=== PATIENT | female | born 1965 | race Caucasian/White ===

== ENCOUNTER 2016-10-20 15:07 | Emergency (ER) | payer OTHER ==
[~2016-10-20] VITALS: Ht 170.2 cm; Wt 70.3 kg
[~2016-10-20 15:07] MED LIST: ASPI325T45 PO; FLUT0.0529 NAE; FOLI1TAB7 PO; GUAI1TAB55 PO; LORA-741 PO; METO25TA56 PO; OXYB5TAB74 PO; PRT/20 PO; SERT100T PO; THIA100T11 PO
[2016-10-20 15:14] VITALS: TEMP 36.8; Ht 170.2 cm; Wt 70.3 kg
[2016-10-20] MEDS ORDERED: OPTIRAY 320 IV PRN (15:45)
[2016-10-20 15:46] VITALS: O2SAT 97
[2016-10-20] MEDS ORDERED: ATV5X PO (15:52)
[2016-10-20] MEDS ORDERED: LPR25 PO (15:52)
[2016-10-20] MEDS ORDERED: ZLF/100 PO (15:52)
[2016-10-20] MEDS ORDERED: DTR5 PO (15:52)
[2016-10-20] MEDS ORDERED: FLUT0.15 NAE (15:56)
[2016-10-20 16:09] LABS: BASO % 0.3 %; BASO ABS # 0.01 K/uL (0-0.2); COMPLETE YES; EOS % 2.1 %; HEMATOCRIT 37.2 % (37-47); IG% 0.3 %; LYMPH % 25.7 %; LYMPH ABS # 0.98 K/uL (1.2-3.4); MEAN CELL VOLUME 90.7 fL (80-100); MEAN CORPUSCULAR HEMOGLOBIN 32.2 pg (25-34); MEAN CORPUSCULAR HGB CONC 35.5 g/dl (32-36); MONO % 11.5 %; NEUT % 60.1 %; PLATELET COUNT 169 K/uL (130-400); WHITE BLOOD COUNT 3.82 K/uL (4.8-10.8)
[2016-10-20 16:18] LABS: PARTIAL THROMBOPLASTIN RATIO 1.1; PROTHROMBIN TIME (PATIENT) 11.1 SECONDS (9.0-12.0)
[2016-10-20 16:47] LABS: ALB/GLOB RATIO 1.1 (0.9-2); ALKALINE PHOSPHATASE 46 U/L (45-117); ALT/SGPT 19 U/L (12-78); AST/SGOT 14 U/L (15-37); BLOOD UREA NITROGEN 15 mg/dl (7-18); BUN/CREATININE RATIO 16.5 (10-20); CALCIUM 8.4 mg/dl (8.5-10.1); CARBON DIOXIDE 24 mmol/L (21-32); CHLORIDE 110 mmol/L (98-107); GLUCOSE 93 mg/dl (70-99); POTASSIUM 3.6 mmol/L (3.5-5.1); SODIUM 144 mmol/L (136-145)
--- NOTE | 2016-10-20 17:36 | DIAGNOSTIC IMAGING REPORT ---
CT ANGIOGRAM OF THE CHEST CLINICAL HISTORY: Chest pain and shortness of breath. Suspected pulmonary embolism. COMPARISON STUDY: Conventional radiographic study dated 01/19/2016 TECHNIQUE: Following the IV administration of 87 mL of Optiray-320, CT angiogram of the thorax was performed from the thoracic inlet to the lung bases utilizing the pulmonary embolus protocol. Images are reviewed in the axial, sagittal, and coronal planes. IV contrast was administered without complication. MIP imaging was performed. CT DOSE: 231.63 mGy.cm FINDINGS: No pathologically enlarged axillary mediastinal or hilar lymph nodes were visualized. There was no evidence of thoracic aortic dilatation. There were no pulmonary artery filling defects to indicate acute pulmonary embolism. No pleural effusions are visualized. There was no evidence of focal pulmonary consolidation. There is embolic coils in wire within the lingula. There is a left subclavian implantable pacer/defibrillator present. There is a 2.5 mm perifissural right lower lobe pulmonary nodule as visualized in image #[id number]. IMPRESSION: 1. No CT evidence of acute pulmonary embolism 2. No evidence of focal pulmonary consolidation. Electronically signed by: Justin Blakely M.D. 10/20/2016 5:35 PM Dictated Date/Time: 10/20/2016 5:29 PM
[2016-10-20 17:42] VITALS: PULSE 94; O2SAT 99
[2016-10-20] MEDS ORDERED: AZITHROMYCIN 250 MG TAB PO STA (18:01)
[2016-10-20] MEDS ORDERED: AZIT250T PO (18:04)
[2016-10-20 18:11] VITALS: BP 125/88
[2016-10-20] MEDS ORDERED: RANI150T3 PO (18:12)
[2016-10-20] MEDS ORDERED: CLR10 PO (22:37)
[2016-10-20] MEDS ORDERED: SALI1SPR3 NAE (22:55)
--- NOTE | 2016-10-21 00:46 | EMERGENCY ROOM VISIT NOTE ---
History First contact with patient: 15:19 Chief Complaint: CHEST PAIN Stated Complaint: SOB, BURNING CHEST PAIN, COUGH History of Present Illness The patient is a 51 year old female who presents to the Emergency Room with complaints of left-sided chest pain, shortness of breath and cough. The patient reports that she developed a cold 1.5 to 2 weeks ago. The patient reports that her symptoms have been consistent. 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 She was seen on the floor by Cresencio Potter PA-C who was concerned regarding her shortness of breath. She was then quickly evaluated by Dr. Artur Zelaya, board mixer tender, who suggested that she come to the emergency department for further evaluation. The patient has a significant prior history of cardiac arrest, and has a defibrillator. She also has a history of AVM and cerebral aneurysm that has been coiled and stented. When she had her cardiac arrest, her board mixer tender was not sure if she actually had a pulmonary embolus that prompted the cardiac arrest or AVM. She is currently on aspirin 325 mg daily. The patient reports that she has had chills, but has not checked her temperature. She denies any productive cough. She currently denies any chest pain. Review of Systems HEENT: Denies dizziness, visual problems, hearing loss, tinnitus. Denies difficulty swallowing or oral lesions. PULMONARY: Reports nonproductive cough and shortness of breath. Denies sputum production or hemoptysis. CARDIOVASCULAR: Reports left-sided chest pain, without palpitations, dyspnea on exertion, orthopnea or peripheral edema. GASTROINTESTINAL: Denies diarrhea, constipation, nausea, vomiting, or abdominal pain. GENITOURINARY: Denies dysuria, frequency, urgency or nocturia. NEUROLOGIC: Denies history of epilepsy, CVA, TIA or chronic headaches. MUSCULOSKELETAL: Denies history of joint tenderness/swelling. SKIN: Denies rashes or lesions. PSYCHIATRIC: Denies history of depression or mental illness. ENDOCRINE: Denies history of diabetes or thyroid disorders. 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 Surgical Problems: (1) Brain aneurysm Family History Heart disease Hypertension Social History Smoking Status: Never Smoker Alcohol Use: none Drug Use: none Marital Status: Housing Status: lives with significant other Occupation Status: employed Current/Historical Medications Scheduled Aspirin (Aspirin), 325 MG PO DAILY Azithromycin (Zithromax), 250 MG PO DAILY Folic Acid (Folvite), 1 MG PO DAILY Metoprolol Tartrate (Lopressor), 25 MG PO BID Oxybutynin Chloride (Oxybutynin Chloride), 5 MG PO DAILY Sertraline HCl (Sertraline HCl), 100 MG PO DAILY Thiamine Hcl (Vitamin B-1), 100 MG PO DAILY Scheduled PRN Fluticasone Propionate (Nasal) (Flonase Allergy Relief), 2 SPRAYS FLAQUITO DAILY PRN for Nasal Congestion Guaifenesin Ext Rel (Mucinex Ext Rel), 600-1,200 MG PO Q12 PRN for Cold Symptoms Loratadine (Claritin), 10 MG PO DAILY PRN for Allergy Symptoms Lorazepam (Lorazepam), 0.5 MG PO TID PRN for Anxiety Ranitidine Hcl (Zantac), 150 MG PO BID PRN for Indigestion Saline (Saline Nasal [place]), 2 SPRAYS FLAQUITO UD PRN for Nasal Congestion/Dryness Allergies Coded Allergies: No Known Allergies (Verified , 03/18/15) Physical Exam Vital Signs Date Time Temp Pulse Resp B/P Pulse Ox O2 Delivery O2 Flow Rate FiO2 10/20/16 18:11 125/88 10/20/16 17:42 94 20 99 10/20/16 17:12 106 30 98 10/20/16 16:58 111/74 10/20/16 16:42 96 17 96 10/20/16 16:37 94 22 95 10/20/16 16:28 108/74 10/20/16 16:07 101 20 97 10/20/16 16:06 100 10/20/16 15:58 115/79 10/20/16 15:46 97 Room Air 10/20/16 15:46 110 20 142/85 97 Room Air 10/20/16 15:14 36.8 117 24 131/78 98 Room Air Physical Exam CONSTITUTIONAL: Healthy and well nourished. Alert and oriented X 3 with positive affect. Patient does appear in mild respiratory distress. She is able to speak in complete sentences, but occasionally will stop and take a deep breath. HEENT: Normocephalic, atraumatic. Pupils equal, round and reactive. Ears and nares are clear. OROPHARYNX: No posterior pharyngeal erythema or tonsillar hypertrophy. NECK: Full active range of motion without discomfort. No JVD or carotid bruits. RESPIRATORY: Clear to auscultation bilaterally with no wheezing, crackles, rhonchi or stridor. CARDIOVASCULAR: Tachycardic with no murmurs, rubs or gallops. GASTROINTESTINAL: Bowel sounds present in all quadrants. Soft and nontender to palpation. MUSCULOSKELETAL: Full range of motion of all joints without discomfort. INTEGUMENTARY: No rash or other significant dermatologic conditions noted. HEMATOLOGIC: No ecchymosis or petechiae noted. NEUROLOGIC: No focal neurologic deficits noted. Medical Decision & Procedures ER Provider Diagnostic Interpretation: My interpretation of an ECG shows a sinus tachycardia of [address] elevations, T-wave inversions or other defibrillator activity. CT angiography of the chest was negative for pulmonary embolus or lung consolidations. Radiologist report is as follows: CT ANGIOGRAM OF THE CHEST CLINICAL HISTORY: Chest pain and shortness of breath. Suspected pulmonary embolism. COMPARISON STUDY: Conventional radiographic study dated 01/19/2016 TECHNIQUE: Following the IV administration of 87 mL of Optiray-320, CT angiogram of the thorax was performed from the thoracic inlet to the lung bases utilizing the pulmonary embolus protocol. Images are reviewed in the axial, sagittal, and coronal planes. IV contrast was administered without complication. MIP imaging was performed. CT DOSE: 231.63 mGy.cm FINDINGS: No pathologically enlarged axillary mediastinal or hilar lymph nodes were visualized. There was no evidence of thoracic aortic dilatation. There were no pulmonary artery filling defects to indicate acute pulmonary embolism. No pleural effusions are visualized. There was no evidence of focal pulmonary consolidation. There is embolic coils in wire within the lingula. There is a left subclavian implantable pacer/defibrillator present. There is a 2.5 mm perifissural right lower lobe pulmonary nodule as visualized in image #[id number]. IMPRESSION: 1. No CT evidence of acute pulmonary embolism 2. No evidence of focal pulmonary consolidation. Laboratory Results 10/20/16 15:55 Red Blood Count 4.10, Mean Corpuscular Volume 90.7, Mean Corpuscular Hemoglobin 32.2, Mean Corpuscular Hemoglobin Concent 35.5, Mean Platelet Volume 9.0, Neutrophils (%) (Auto) 60.1, Lymphocytes (%) (Auto) 25.7, Monocytes (%) (Auto) 11.5, Eosinophils (%) (Auto) 2.1, Basophils (%) (Auto) 0.3, Neutrophils # (Auto ) 2.30, Lymphocytes # (Auto) 0.98, Monocytes # (Auto) 0.44, Eosinophils # (Auto ) 0.08, Basophils # (Auto) 0.01 10/20/16 15:55 Test 10/20/16 15:55 10/20/16 16:04 White Blood Count 3.82 K/uL (4.8-10.8) Red Blood Count 4.10 M/uL (4.2-5.4) Hemoglobin 13.2 g/dL (12.0-16.0) Hematocrit 37.2 % (37-47) Mean Corpuscular Volume 90.7 fL (80-100) Mean Corpuscular Hemoglobin 32.2 pg (25-34) Mean Corpuscular Hemoglobin Concent 35.5 g/dl (32-36) Platelet Count 169 K/uL (130-400) Mean Platelet Volume 9.0 fL (7.4-10.4) Neutrophils (%) (Auto) 60.1 % Lymphocytes (%) (Auto) 25.7 % Monocytes (%) (Auto) 11.5 % Eosinophils (%) (Auto) 2.1 % Basophils (%) (Auto) 0.3 % Neutrophils # (Auto) 2.30 K/uL (1.4-6.5) Lymphocytes # (Auto) 0.98 K/uL (1.2-3.4) Monocytes # (Auto) 0.44 K/uL (0.11-0.59) Eosinophils # (Auto) 0.08 K/uL (0-0.5) Basophils # (Auto) 0.01 K/uL (0-0.2) RDW Standard Deviation 41.9 fL (36.4-46.3) RDW Coefficient of Variation 12.7 % (11.5-14.5) Immature Granulocyte % (Auto) 0.3 % Immature Granulocyte # (Auto) 0.01 K/uL (0.00-0.02) Prothrombin Time 11.1 SECONDS (9.0-12.0) Prothromb Time International Ratio 1.0 (0.9-1.1) Activated Partial Thromboplast Time 27.7 SECONDS (21.0-31.0) Partial Thromboplastin Ratio 1.1 Anion Gap 10.0 mmol/L (3-11) Est Creatinine Clear Calc Drug Dose 71.9 ml/min Estimated GFR () 85.8 Estimated GFR (Non- 74.0 BUN/Creatinine Ratio 16.5 (10-20) Calcium Level 8.4 mg/dl (8.5-10.1) Total Bilirubin 1.0 mg/dl (0.2-1) Aspartate Amino Transf (AST/SGOT) 14 U/L (15-37) Alanine Aminotransferase (ALT/SGPT) 19 U/L (12-78) Alkaline Phosphatase 46 U/L (45-117) Total Creatine Kinase 44 U/L (26-192) Creatine Kinase MB < 0.5 ng/ml (0.5-3.6) Creatine Kinase MB Ratio (0-3.0) Total Protein 7.0 gm/dl (6.4-8.2) Albumin 3.7 gm/dl (3.4-5.0) Globulin 3.3 gm/dl (2.5-4.0) Albumin/Globulin Ratio 1.1 (0.9-2) Monoscreen NEG (NEG) Bedside Troponin I 0.000 ng/ml (0-0.045) The above labs were reviewed bedside troponin was normal. CBC, partial renal profile, LFTs, lipase and coagulation studies are normal. [place] screen was also negative. Medications Administered Medications (Trade) Dose Ordered Sig/Jordi Route Start Time Stop Time Status Last Admin Dose Admin Azithromycin (Zithromax Tab) 500 mg NOW STAT PO 10/20/16 18:01 10/20/16 18:02 DC 10/20/16 18:30 500 MG ED Course Patient history and physical exam were performed. Nurse's notes were reviewed. Vital signs were reviewed. The patient is tachycardic. She is normotensive and afebrile. O2 saturation is 98% on room air. The patient does have a noticeable shortness of breath, occasionally stopping with her speech and taking a deep breath. She does not appear acutely ill or toxic. Given her prior history of AVM and questionable preceding pulmonary embolus, I did suggest performing a CT scan of the chest. The patient was in agreement. IV access was established, and labs were drawn. Initial ECG was normal. Labs were also reviewed and were normal, including a bedside troponin. Chest CT angiography was normal. Because the patient has had upper respiratory symptoms for the past few weeks, I do feel that antibiotic treatment is warranted. The patient was provided a prescription for Zithromax. She was encouraged to follow-up closely with her PCP for further management, returning to the emergency department for any progressively worsening symptoms. The patient was happy with plan of care, voice understanding of all discharge instructions, and denied any chest pain or significant shortness of breath at the time of discharge. Medical Decision Patient presents to the emergency department with complaint of shortness of breath. She has had an upper respiratory infection over the past 2 months with cough. She also has a significant history of myocardial infarction with arrest , and defibrillator in place. She also has a prior history of AVM, possibly originating from a pulmonary embolus. Because of the patient's history, I did feel that chest CT angiography was warranted. This was normal, and did not show any evidence for pulmonary emboli or focal lung consolidations. Her ECG and troponin values are normal. I do not suspect acute myocardial infarction. There is no convincing evidence for pericarditis on CT scan. No pneumothorax or pneumonia is noted. Other differentials considered included pleurisy, however the patient does not have any worsening discomfort with deep breathing. I do not suspect abdominal referred pain. Impression Primary Impression: Shortness of breath Additional Impression: Acute bronchitis Departure Information Prescriptions Azithromycin (Zithromax) 250 Mg Tab 250 MG PO DAILY for 9 Days, #9 TAB Prov: Samir Plasencia PA 10/20/16 Referrals Roque Haywood M.D.([facility]) (PCP) Patient Instructions My [facility] Problem Qualifiers Additional Impression: Acute bronchitis Bronchitis organism: unspecified organism Qualified Codes: J20.9 - Acute bronchitis, unspecified
== END 2016-10-20 18:30 | disposition home or self-care (01) ==
LOC: C.EDB 15:09 → C.EDC 18:30
DX: R06.02 Shortness of breath (principal); J20.9 Acute bronchitis, unspecified; I25.2 Old myocardial infarction; Z79.899 Other long term (current) drug therapy; Z79.82 Long term (current) use of aspirin; Z95.810 Presence of automatic (implantable) cardiac defibrillator; Z86.79 Personal history of other diseases of the circulatory system; Z82.49 Family history of ischemic heart disease and other diseases of the circulatory system

== ENCOUNTER → 2017-02-09 | Outpatient (CLI) | payer OTHER ==
[~2017-02-09] MED LIST changes: +ATV5X PO; +CHOL2000 PO; +CLR10 PO; +DTR5 PO; -FLUT0.0529 NAE; +FLUT0.15 NAE; +FOLI800T17 PO; -LORA-741 PO; +LPR25 PO; -METO25TA56 PO; -OXYB5TAB74 PO; -PRT/20 PO; +RANI150T3 PO; +SALI1SPR3 NAE; -SERT100T PO; +ZLF/100 PO
== END | disposition home or self-care (01) ==
LOC: C.PAPS 11:09
PROVIDERS: ATTEND Obstetrics & Gynecology
DX: Z12.4 Encounter for screening for malignant neoplasm of cervix (principal); Z11.51 Encounter for screening for human papillomavirus (HPV)

== ENCOUNTER → 2017-08-20 | Day surgery (SDC) | payer OTHER ==
[2017-08-17 10:32] VITALS: Ht 170.2 cm; Wt 68.2 kg
[~2017-08-20] VITALS: Ht 170.2 cm; Wt 68.2 kg
[~2017-08-20] MED LIST changes: -FOLI1TAB7 PO; +LIDOCAINE HCL 2% 2 ML VIAL (20MG/ML) ONE; +MIDAZOLAM HCL 1 MG/ML 2ML VIAL ONE; +ONDANSETRON INJ 2 MG/ML 2 ML VIAL ONE; +PROPOFOL IV EMULSION 10 MG/ML 20 ML VIAL IV ONE; +SODIUM CHLORIDE 0.9% 500ML 500 ML IV ONE
--- NOTE | 2017-08-20 12:29 | Endo History and Physical ---
History & Physical Date of Service: Aug 20, 2017. Chief Complaint: Screening Referring Physician: Dr. 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 --> MARCELINO BSO) Hx of Implantable Prosthesis: No Hx Post-Op Nausea and Vomiting: No Hx Cancer Surgery: No Hx Thoracic Surgery: Yes (AVM COIL) Hx Orthopedic: No Hx Urinary Tract Surgery: No Family History IBD Social History Smoking Status: Never Smoker Hx Substance Use: No Hx Alcohol Use: No Allergies Coded Allergies: No Known Allergies (Verified , 08/17/17) Current Medications Reported Home Medications Medications Dose Route/Sig Max Daily Dose Days Date Category Dose Instructions [facility] Folic Acid (Folic Acid) 800 Mcg Tab 1 Tab PO QPM 08/17/17 Reported Vitamin D3 (Cholecalciferol) 2,000 Unit Cap 1 Cap PO QPM 08/17/17 Reported Zantac (Ranitidine HCl) 150 Mg Tab 150 Mg PO BID PRN 10/20/16 Reported Flonase Allergy Relief (Fluticasone Propionate (Nasal)) 50 Mcg/Act Spr 2 Sprays FLAQUITO DAILY PRN 10/20/16 Reported Sertraline HCl 100 Mg Tab 100 Mg PO QPM 10/20/16 Reported Lorazepam 0.5 Mg Tab 0.5 Mg PO TID PRN 10/20/16 Reported Lopressor (Metoprolol Tartrate) 25 Mg Tab 25 Mg PO QPM 10/20/16 Reported Oxybutynin Chloride 5 Mg Tab 5 Mg PO QPM 10/20/16 Reported Vitamin B-1 (Thiamine HCl) 100 Mg Tab 100 Mg PO QPM 01/19/16 Reported Mucinex Ext Rel (Guaifenesin) 600 Mg Tab 600-1,200 Mg PO Q12 PRN 03/19/15 Reported Aspirin 325 Mg Tab 325 Mg PO QPM 03/19/15 Reported Saline Nasal [place] (Saline) 0.65 % Spr 2 Sprays FLAQUITO UD PRN 12/12/12 Reported ADMINISTER DIRECTED BY PACKAGE INSTRUCTIONS Claritin (Loratadine) 10 Mg Tab 10 Mg PO DAILY PRN 12/12/12 Reported Vital Signs Weight (Kilograms): 68.18 Height (Feet): 5 Height (Inches): 7 Date Time Temp Pulse Resp B/P (MAP) Pulse Ox O2 Delivery O2 Flow Rate FiO2 08/20/17 10:52 36.6 94 16 111/67 (82) 99 Room Air Physical Exam General Appearance: no apparent distress Respiratory/Chest: Respiratory effort: no dyspnea Cardiovascular: Apical Impulse: not displaced Heart Auscultation: RRR Abdomen: Inspection & Palpation: soft Assessment and Plan CRC screening
--- NOTE | 2017-08-20 13:12 | GI REPORT ---
Procedure Date: 08/20/2017 12:22 PM Procedure: Colonoscopy Indications: Screening for colorectal malignant neoplasm Medicines: See the Anesthesia note for documentation of the administered medications Complications: No immediate complications. Estimated Blood Loss: Estimated blood loss: none. Procedure: Pre-Anesthesia Assessment: - ASA Grade Assessment: II - A patient with mild systemic disease. - After reviewing the risks and benefits, the patient was deemed in satisfactory condition to undergo the procedure. After I obtained informed consent, the scope was passed under direct vision. Throughout the procedure, the patient's blood pressure, pulse, and oxygen saturations were monitored continuously. The scope was introduced through the anus and advanced to the terminal ileum. The colonoscopy was performed without difficulty. The patient tolerated the procedure well. The quality of the bowel preparation was good. Findings: The perianal and digital rectal examinations were normal. The colon (entire examined portion) appeared normal. The terminal ileum appeared normal. Impression: - The entire examined colon is normal. - The examined portion of the ileum was normal. - No specimens collected. Recommendation: - Discharge patient to home. - Repeat colonoscopy in 10 years for screening purposes. Steffanie Luis M.D. Steffanie Luis MD 08/20/2017 1:11:56 PM This report has been signed electronically. Note Initiated On: 08/20/2017 12:22 PM I attest to the content of the Intraoperative Record and orders documented therein, exceptions below
--- NOTE | 2017-08-20 13:13 | Discharge Instructions ---
Endoscopy Patient Instructions Date / Procedure(s) Performed Aug 20, 2017. Colonoscopy Allergy Information Coded Allergies: No Known Allergies (Verified , 08/17/17) Discharge Date / Findings Aug 20, 2017. Normal exam. Medication Instructions Stopped Medication(s): Patient was told to stop her aspirin 2 days before. Resume aspirin today. Consider trial of peppermint oil, or IBgard, for bloating. Provider Instructions Activity Restrictions - No exercising or heavy lifting for 24 hours. - Do not drink alcohol the day of the procedure. - Do not drive a car or operate machinery until the day after the procedure. - Do not make any important decisions or sign important papers in 24 hours after the procedure. Following Day: - Return to full activity which may include returning to work/school. Diet Start your diet with liquids and light foods (jello, soup, juice, toast). Then eat your usual diet if not nauseated. Treatment For Common After Affects For mild abdominal pain, bloating, or excessive gas: - Rest - Eat lightly - Lie on right side Follow-Up Information Follow-up with Dr. Roque Haywood as scheduled Anesthesia Information What You Should Know You have had a procedure that required some medicine to reduce anxiety and discomfort. This treatment is called moderate sedation. After receiving the treatment, you may be sleepy, but you will be able to breathe on your own. The effects of the treatment may last for several hours. Follow these instructions along with Activity/Diet recommendations noted above: * Do NOT do anything where dizziness or clumsiness would be dangerous. * Rest quietly at home today, then you can be up and about tomorrow. * Have a responsible person stay with you the rest of today. * You may have had an I.V. today. If so, you may take the dressing off later today. Recommendations Call your doctor if: * Trouble breathing * Continuous vomiting for more than 24 hours * Temperature above 101 degrees * Severe abdominal pain or bloating * Pain not relieved by pain medicine ordered * There is increased drainage or redness from any incision * A large amount of rectal bleeding greater than 2-3 tablespoons. (If you had a polyp/s removed or have hemorrhoids, a small amount of blood - from the rectum is to be expected.) * You have any unanswered questions or concerns. IN THE EVENT OF A SERIOUS EMERGENCY, GO TO THE NEAREST EMERGENCY ROOM Your discharge instructions were prepared by provider Steffanie Best. Patient Instructions Signature Page Danielle Walker Patient (or Guardian) Signature/Date: I have read and understand the instructions given to me by my caregivers. Caregiver/RN/Doctor Signature/Date: The above-named patient and/or guardian has received patient instructions on this date. + Original Patient Signature Page (only) stays with chart. Please make copy for patient.
--- NOTE | 2017-08-20 13:29 | Anesthesiology Progress Note ---
Anesthesia Post Op Note Date & Time Aug 20, 2017 at 13:28 Vital Signs Pain Intensity: 0 Vital Signs Past 12 Hours Date Time Temp Pulse Resp B/P (MAP) Pulse Ox O2 Delivery O2 Flow Rate FiO2 08/20/17 13:19 62 16 114/72 (86) 99 Room Air 08/20/17 13:04 67 12 106/67 (80) 99 Room Air 08/20/17 10:52 36.6 94 16 111/67 (82) 99 Room Air Notes Mental Status: alert / awake / arousable, participated in evaluation Pt Amnestic to Procedure: Yes Nausea / Vomiting: adequately controlled Pain: adequately controlled Airway Patency, RR, SpO2: stable & adequate BP & HR: stable & adequate Hydration State: stable & adequate Anesthetic Complications: no major complications apparent
[2017-08-20 13:34] VITALS: BP 113/57; PULSE 68; O2SAT 100
== END | disposition home or self-care (01) ==
LOC: C.GI 10:10
PROVIDERS: ATTEND Internal Medicine Gastroenterology
DX: Z12.11 Encounter for screening for malignant neoplasm of colon (principal); I25.10 Atherosclerotic heart disease of native coronary artery without angina pectoris; I10 Essential (primary) hypertension

== ENCOUNTER 2017-09-19 19:25 | Emergency (ER) | payer OTHER ==
[~2017-09-19] VITALS: Ht 167.6 cm; Wt 72.9 kg
[~2017-09-19 19:25] MED LIST changes: +ASPECOTC PO; -ASPI325T45 PO; -CLR10 PO; -LIDOCAINE HCL 2% 2 ML VIAL (20MG/ML) ONE; -MIDAZOLAM HCL 1 MG/ML 2ML VIAL ONE; -ONDANSETRON INJ 2 MG/ML 2 ML VIAL ONE; -PROPOFOL IV EMULSION 10 MG/ML 20 ML VIAL IV ONE; -SALI1SPR3 NAE; -SODIUM CHLORIDE 0.9% 500ML 500 ML IV ONE; +THIA100T10 PO; -THIA100T11 PO
[2017-09-19 19:29] VITALS: TEMP 37; Ht 167.6 cm; Wt 72.9 kg
[2017-09-19] MEDS ORDERED: FLV1 PO (19:55)
--- NOTE | 2017-09-19 20:13 | EMERGENCY ROOM VISIT NOTE ---
History First contact with patient: 19:34 Chief Complaint: ELBOW PAIN/INJURY Stated Complaint: SWOLLEN ELBOW History of Present Illness The patient is a 52 year old female who presents to the Emergency Room with complaints of left elbow pain ever since the patient had a fall earlier this afternoon. She slipped on the ice hitting the left elbow off the ground. She has significant pain with touching the area. She has fairly good range of motion. She denies any numbness or tingling into her hand. She has not taken anything for pain. She denies any other injuries. The patient takes an aspirin 324 mg daily Review of Systems 6 system review negative. Please see pertinent positives in the history of present illness section. 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 Surgical Problems: (1) Brain aneurysm Family History Heart disease Hypertension Social History Smoking Status: Never Smoker Alcohol Use: none Drug Use: none Marital Status: Housing Status: lives with significant other Occupation Status: employed Current/Historical Medications Scheduled Aspirin (Aspirin), 325 MG PO QPM Cholecalciferol (Vitamin D3), 2,000 INTER.UNIT PO QPM Folic Acid (Folic Acid), 1 MG PO QPM Metoprolol Tartrate (Lopressor), 25 MG PO QPM Oxybutynin Chloride (Oxybutynin Chloride), 5 MG PO QPM Sertraline HCl (Sertraline HCl), 100 MG PO QPM Thiamine Hcl (Vitamin B-1), 100 MG PO QPM Scheduled PRN Fluticasone Propionate (Nasal) (Flonase Allergy Relief), 2 SPRAYS FLAQUITO DAILY PRN for Nasal Congestion Guaifenesin Ext Rel (Mucinex Ext Rel), 600-1,200 MG PO Q12 PRN for Cold Symptoms Loratadine (Claritin), 10 MG PO DAILY PRN for Allergy Symptoms Lorazepam (Lorazepam), 0.5 MG PO BID PRN for Anxiety Ranitidine Hcl (Zantac), 150 MG PO BID PRN for Indigestion Saline (Saline Nasal [place]), 2 SPRAYS FLAQUITO UD PRN for Nasal Congestion/Dryness Physical Exam Vital Signs Date Time Temp Pulse Resp B/P (MAP) Pulse Ox O2 Delivery O2 Flow Rate FiO2 12/30/17 20:52 78 16 127/71 100 09/19/17 19:29 37.0 92 18 132/87 97 Room Air Physical Exam VITALS: Vitals are noted on the nurse's note and reviewed by myself. Vital signs stable. GENERAL: 52-year-old female, in no acute distress, nondiaphoretic, well- developed well-nourished. SKIN: The skin was intact HEAD: Normocephalic atraumatic. MUSCULOSKELETAL: LUE: Significant tenderness and swelling noted over the left olecranon bursa. Flexion is full. Extension also close to full. Radial pulse +2. She is able to make an okay sign. Pronation and supination intact. Meter Changes Records Clerk strength 5/5. NEURO: Patient was alert and oriented to person place and time. Normal sensation to touch. No focal neurological deficits. Medical Decision & Procedures ER Provider Diagnostic Interpretation: Left elbow x-ray Patient Name: TANA VALLES Unit Number: [id number] Dictated: 09/19/172009 Transcribed: 09/19/172009 PBS Printed Date/Time: [~ rep prt dt]/[~ rep prt tm] [~ rep ct labl] - [~ rep ct ivnm] [facility] Radiology Department [place] [id number] Dictated: 09/19/172009 Transcribed: 09/19/172009 PBS Printed Date/Time: [~ rep prt dt]/[~ rep prt tm] [~ rep ct labl] - [~ rep ct ivnm] IMPRESSION: No acute osseous injury of the left elbow. Electronically signed by: Ever Sung M.D. 09/19/2017 8:14 PM Dictated Date/Time: 09/19/2017 8:10 PM The status of this report is Signed. Draft = Not yet reviewed or approved by Radiologist. Signed = Reviewed and approved by Radiologist. <AttendingPhy></AttendingPhy> <FamilyPhy>Roque Haywood M.D.(BOB)</ FamilyPhy> <PrimaryPhy>Roque Haywood M.D.(BOB)</PrimaryPhy> <UnitNumber> [id number]</UnitNumber> <VisitNumber>[id number]</VisitNumber> <PatientName> TANA VALLES</PatientName> <DateOfBirth>1965</DateOfBirth> <Location> C.DEBBIE</Location> <ServiceDate>09/19/17</ServiceDate> <MNE>ESINDI</MNE> < OrderingPhy>Felicitas Dia BYRON</OrderingPhy> <OrderingPhyMNE>f rep ord dr lundberg< /OrderingPhyMNE> <DictatingPhyMNE>f rep dict dr lundberg</DictatingPhyMNE> <CCListMNE >f rep ct mne</CCListMNE> <AdmittingPhyMNE>f pt admit dr lundberg</AdmittingPhyMNE> < AttendingPhyMNE>f pt attend dr lundberg</AttendingPhyMNE> <ConsultingPhyMNE>f pt consult dr lundberg</ConsultingPhyMNE> <FamilyPhyMNE>f pt fam dr lundberg</FamilyPhyMNE> <OtherPhyMNE>f pt other dr lundberg</OtherPhyMNE> < PrimaryPhyMNE>f pt prim care dr lundberg</PrimaryPhyMNE> <ReferringPhyMNE>f pt referring dr lundberg</ReferringPhyMNE> Medications Administered Medications (Trade) Dose Ordered Sig/Jordi Route Start Time Stop Time Status Last Admin Dose Admin Cyclobenzaprine HCl (FLEXERIL 10MG Home Pack) 1 homepack UD ONCE PO 09/19/17 20:30 09/19/17 20:31 DC 09/19/17 20:23 1 HOMEPACK ED Course The patient was seen and examined Imaging was performed and reviewed She declined pain medication She was given a home pack of Flexeril A compression Nathan wrap was applied to the elbow. We discussed the results of her x-rays. She voiced understanding. Discharge instructions were reviewed, and she was discharged in good condition Medical Decision Differential diagnosis: Fracture, contusion, hematoma, traumatic bursitis This patient is a 52-year-old female that presents to the emergency department with left elbow pain and swelling. She was significantly tender over the bursa. Imaging was negative for fracture. I believe she likely has a traumatic bursitis. She is neurovascularly intact. A compression Nathan wrap was applied. She will ice and elevate the elbow over the next 48 hours. She is comfortable taking Tylenol and/or ibuprofen for pain. I believe she is stable to be discharged home. She'll follow-up with her primary care physician and/or orthopedics if there is no improvement. She agrees to return to the emergency department with any new or worsening symptoms. This chart was completed in part utilizing efw-suhl Speech Voice Recognition software. Attempts were made to minimize the grammatical errors, random word insertions, pronoun errors and incomplete sentences. Any formal questions or concerns about the content, text or information contained within the body of this dictation should be directly addressed to the provider for clarification. Impression Primary Impression: Traumatic bursitis Departure Information Dispostion Home / Self-Care Condition GOOD Referrals Roque Haywood M.D.(BOB) (PCP) Patient Instructions My [facility] Additional Instructions You were evaluated in the emergency department for elbow pain after a fall. This is likely due to a traumatic bursitis. Please keep the Nathan wrap in place tightly over the elbow for the next 48 hours. Please apply ice for 20 minute intervals and elevate/rest the arm if possible. Ibuprofen 400 mg and/or Tylenol 1000 mg every 8 hours. You may also alternate these medications for more effective pain relief: Ibuprofen --4 HRS--> Tylenol --4 HRS--> ibuprofen --4 HRS--> Tylenol .... Please take Flexeril 1 tab every 8 hours as needed for muscle soreness. Please follow-up with your primary care physician or an orthopedic doctor if there is no improvement within the next week. Please do not hesitate to return to the emergency department with any new, worsening or concerning symptoms; especially, numbness, tingling or weakness into the forearm/hand. Happy New Year's and Merry Vicki!
--- NOTE | 2017-09-19 20:15 | DIAGNOSTIC IMAGING REPORT ---
L ELBOW MIN 3 VIEWS ROUTINE CLINICAL HISTORY: 52 years-old Female presenting with L elbow trauma . TECHNIQUE: Frontal, oblique, and lateral views of the left elbow were obtained. COMPARISON: None. FINDINGS: No elbow joint effusion. No acute fracture or malalignment. No degenerative change. No radiographic soft tissue abnormality. IMPRESSION: No acute osseous injury of the left elbow. Electronically signed by: Ever Sung M.D. 09/19/2017 8:14 PM Dictated Date/Time: 09/19/2017 8:10 PM
[2017-09-19] MEDS ORDERED: FLEXERIL HOME PACK 10 MG VIAL PO ONE (20:30)
[2017-09-19 20:52] VITALS: BP 127/71; PULSE 78; O2SAT 100
[2017-09-19] MEDS ORDERED: CLR10 PO (22:37)
[2017-09-19] MEDS ORDERED: SALI-3 NAE (22:55)
== END 2017-09-19 20:40 | disposition home or self-care (01) ==
LOC: C.EDB 19:26 → C.EDD 20:40
DX: M70.32 Other bursitis of elbow, left elbow (principal); W19.XXXA Unspecified fall, initial encounter; F41.9 Anxiety disorder, unspecified; Z82.49 Family history of ischemic heart disease and other diseases of the circulatory system; Z79.82 Long term (current) use of aspirin

== ENCOUNTER 2017-09-21 23:33 | Emergency (ER) | payer OTHER ==
[~2017-09-21] VITALS: Ht 167.6 cm; Wt 72.9 kg
[~2017-09-21 23:33] MED LIST changes: +CLR10 PO; +FLV1 PO; -FOLI800T17 PO; +SALI-3 NAE
[2017-09-21 23:35] VITALS: TEMP 36.4; Ht 167.6 cm; Wt 72.9 kg
[2017-09-21] MEDS ORDERED: IBUPROFEN 800 MG TAB PO STA (23:54)
[2017-09-22] MEDS ORDERED: IBUP-1451 PO (00:04)
--- NOTE | 2017-09-22 00:07 | EMERGENCY ROOM VISIT NOTE ---
History Report prepared by Sailaja: Trang Armendariz Under the Supervision of: Dr. Vincenzo Rodrigues M.D. First contact with patient: 23:39 Chief Complaint: ELBOW PAIN/INJURY Stated Complaint: SWOLLEN ELBOW History of Present Illness The patient is a 52 year old female who presents to the Emergency Room with complaints of an episode of elbow pain starting two days ago. The patient states that she was taking her dogs out when she slipped down a snow bank while holding and fell. She reports that she landed on her left elbow and left hip. She states that she has some neck pain from tensing from the fall. The patient states that she had an x-ray that day and it showed nothing was broken. She reports that she had an nathan bandage wrapped around it till tonight. The patient complains of intermittent numbness in her hand down to her elbow and her arm being swollen. She notes that she took some Tylenol with some relief. The patient notes a history of a coiled aneurysm and takes an Aspirin daily for it. Source of History: patient Onset: two days ago Position: elbow (left) Quality: other (swollen) Timing: other (episode) Modifying Factors (Relieving): tylenol Associated Symptoms: + neck pain, + numbness Review of Systems See HPI for pertinent positives and negatives. A total of ten systems were reviewed and were otherwise negative. 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 Surgical Problems: (1) Brain aneurysm Family History Heart disease Hypertension Social History Smoking Status: Never Smoker Alcohol Use: none Drug Use: none Marital Status: Housing Status: lives with significant other Occupation Status: employed Current/Historical Medications Scheduled Aspirin (Aspirin), 325 MG PO QPM Cholecalciferol (Vitamin D3), 2,000 INTER.UNIT PO QPM Folic Acid (Folic Acid), 1 MG PO QPM Metoprolol Tartrate (Lopressor), 25 MG PO QPM Oxybutynin Chloride (Oxybutynin Chloride), 5 MG PO QPM Sertraline HCl (Sertraline HCl), 100 MG PO QPM Thiamine Hcl (Vitamin B-1), 100 MG PO QPM Scheduled PRN Fluticasone Propionate (Nasal) (Flonase Allergy Relief), 2 SPRAYS FLAQUITO DAILY PRN for Nasal Congestion Guaifenesin Ext Rel (Mucinex Ext Rel), 600-1,200 MG PO Q12 PRN for Cold Symptoms Ibuprofen Tab (Motrin), 800 MG PO Q8H PRN for Pain Loratadine (Claritin), 10 MG PO DAILY PRN for Allergy Symptoms Lorazepam (Lorazepam), 0.5 MG PO BID PRN for Anxiety Ranitidine Hcl (Zantac), 150 MG PO BID PRN for Indigestion Saline (Saline Nasal [place]), 2 SPRAYS FLAQUITO UD PRN for Nasal Congestion/Dryness Allergies Coded Allergies: No Known Allergies (Verified , 09/22/17) Physical Exam Vital Signs Date Time Temp Pulse Resp B/P (MAP) Pulse Ox O2 Delivery O2 Flow Rate FiO2 09/22/17 00:24 81 20 127/81 98 09/21/17 23:35 36.4 86 20 124/86 96 Room Air Physical Exam GENERAL: Awake, alert, well-appearing, in no distress HENT: Normocephalic, atraumatic. Oropharynx unremarkable. EYES: Normal conjunctiva. Sclera non-icteric. NECK: Supple. No nuchal rigidity. FROM. No JVD. RESPIRATORY: Clear to auscultation. CARDIAC: Regular rate, normal rhythm. Extremities warm and well perfused. Pulses equal. ABDOMEN: Soft, non-distended. No tenderness to palpation. No rebound or guarding. No masses. RECTAL: Deferred. MUSCULOSKELETAL: Chest examination reveals no tenderness. The back is symmetrical on inspection without obvious abnormality. There is no CVA tenderness to palpation. Ecchymosis and contusion to the dorsal aspect of the left elbow. Full ROM without pain. Mild tenderness to the lateral aspect of the left elbow. Distal pulse, motor, sensory intact. LOWER EXTREMITIES: Calves are equal size bilaterally and non-tender. No edema. No discoloration. NEURO: Normal sensorium. No sensory or motor deficits noted. SKIN: No rash or jaundice noted. Medical Decision & Procedures ED Course 2346: The patient was evaluated in room C2B. A complete history and physical exam was performed. Discussed results and discharge instructions: She verbalized understanding and agreement. The patient is ready for discharge. Medical Decision I reviewed the patient's past medical history, medications, and the nursing notes as described above. Differential diagnoses include contusion, fracture, nerve impingement, hematoma. The patient is a 52-year-old woman who presents emergency Department with persistent left elbow pain and numbness and tingling in her left forearm and hand is intermittent after falling onto her left elbow several days ago and had a negative x-ray in the emergency department per hpi. On arrival the patient is well-appearing, afebrile stable vital signs. On exam the patient has a mild contusion to the posterior aspect of the left elbow with mild edema extending distally to the left forearm however compartments are soft. Distal PMS intact. Reproducible paresthesia with palpation in the radial distribution of the forearm. The patient's negative x-ray recently symptoms are most likely due to persistent edema in the setting of her contusion. Less likely could be due to occult fracture or possible nerve impingement. I did offer the patient opportunity for a CAT scan to further clarify however she preferred to follow up outpatient. Plan for analgesia and anti-inflammatory and ortho follow-up follow-up. Findings and plan for follow-up reviewed with patient. Patient agreeable and d/c'd per discharge instructions. Medication Reconcilliation Current Medication List: was personally reviewed by me Blood Pressure Screening Patient's blood pressure: Normal blood pressure Blood pressure disposition: Did not require urgent referral Impression Primary Impression: Elbow contusion Additional Impression: Arm paresthesia, left Scribe Attestation The scribe's documentation has been prepared under my direction and personally reviewed by me in its entirety. I confirm that the note above accurately reflects all work, treatment, procedures, and medical decision making performed by me. Departure Information Dispostion Home / Self-Care Prescriptions Ibuprofen Tab (MOTRIN) 800 Mg Tab 800 MG PO Q8H Y for Pain for 7 Days, #21 TAB Prov: Vincenzo Rodrigues M.D. 09/22/17 Referrals Roque Haywood M.D.(BOB) (PCP) Kalin Fontana D.O. Forms HOME CARE DOCUMENTATION FORM, IMPORTANT VISIT INFORMATION Patient Instructions ED Contusion Elbow, ED Paraesthesias, My [facility] Additional Instructions Please follow up with orthopedics, Dr. Fontana, within the next week for re- evaluation and possible additional imaging. Your symptoms are most likely due swelling in your elbow from your fall. Otherwise, your exam did not show signs of an emergent condition at this time. Ibuprofen or Acetaminophen for pain as needed. Nathan wrap to help minimize swelling. Return to the emergency department for worsening symptoms as described in the accompanying instructions. Problem Qualifiers
[2017-09-22 00:24] VITALS: BP 127/81; PULSE 81; O2SAT 98
== END 2017-09-22 00:15 | disposition home or self-care (01) ==
LOC: C.EDB 23:34 → C.EDC 09-22 00:15
DX: S50.01XA Contusion of right elbow, initial encounter (principal); W01.0XXA Fall on same level from slipping, tripping and stumbling without subsequent striking against object, initial encounter; R20.2 Paresthesia of skin; F41.9 Anxiety disorder, unspecified; I25.2 Old myocardial infarction; Z86.2 Personal history of diseases of the blood and blood-forming organs and certain disorders involving the immune mechanism; Z90.710 Acquired absence of both cervix and uterus; Z79.82 Long term (current) use of aspirin; Z79.899 Other long term (current) drug therapy; Z82.49 Family history of ischemic heart disease and other diseases of the circulatory system

== ENCOUNTER → 2017-11-18 | Outpatient (CLI) | payer OTHER ==
[~2017-11-18] MED LIST changes: -ASPECOTC PO; +ASPI325T45 PO; -SALI-3 NAE; +SALI1SPR3 NAE; -THIA100T10 PO; +THIA100T11 PO
--- NOTE | 2017-11-18 15:24 | DIAGNOSTIC IMAGING REPORT ---
L-SPINE MIN 4 VIEWS ROUTINE CLINICAL HISTORY: Low back pain. COMPARISON: None FINDINGS: Vertebral body heights are maintained. No fracture or suspicious lesion is present. Disc spaces are preserved. There is mild multilevel endplate osteophytosis of the lumbar spine. There is moderate arthritis of the bilateral sacroiliac joints. There is moderate multilevel facet arthrosis. IMPRESSION: 1. No lumbar spine fracture. 2. Mild multilevel degenerative disc disease with moderate multilevel facet arthrosis. Electronically signed by: Klevre Epstein M.D. 11/18/2017 3:22 PM Dictated Date/Time: 11/18/2017 3:21 PM
--- NOTE | 2017-11-18 15:25 | DIAGNOSTIC IMAGING REPORT ---
SI JOINTS 3 OR MORE VIEWS CLINICAL HISTORY: 52 years-old Female presenting with LOW BACK PAIN. TECHNIQUE: Frontal view of the sacrum and bilateral oblique views of the sacroiliac joints were obtained. COMPARISON: None. FINDINGS: Bilateral sacroiliac joints preserved without evidence of fusion or erosion. No significant osteophytosis is evident. Arcuate lines intact without convincing evidence of a sacral fracture. Remaining visualized portion of the bony pelvis intact. Lower lumbar spine normal. IMPRESSION: Normal radiographic appearance of the bilateral sacroiliac joints. No sacral fracture. Electronically signed by: Ever Sung M.D. 11/18/2017 3:23 PM Dictated Date/Time: 11/18/2017 3:22 PM
== END | disposition home or self-care (01) ==
LOC: C.RAD 14:24
PROVIDERS: ATTEND Internal Medicine Gastroenterology
DX: M54.5 Low back pain (principal)